=== PATIENT | female | born 1985 | race Caucasian/White ===

== ENCOUNTER 2017-08-10 21:13 | Emergency (ER) | payer MEDICAID ==
[2017-08-10 22:19] LABS: BASOPHILS 0.4 % (0-2); EOSINOPHILS 2.7 % (0-7); HEMATOCRIT 39.1 % (36.0-48.0); HEMOGLOBIN 13.6 g/dL (12-16); IMMATURE GRANULOCYTES 0.2 % (0-5); LYMPHOCYTES 39.7 % (15-50); MCH 30.6 pg (26.0-34.0); MCHC 34.8 g/dL (31.0-37.0); MCV 88.1 fL (80.0-100.0); MEAN PLATELET VOLUME 10.4 fL (7.4-10.4); PLATELET COUNT 196 10x3/uL (130-400); RBC 4.44 10x6/uL (4.00-5.40); RDW 11.9 % (11.5-14.5); WBC 9.5 10x3/uL (4.8-10.8)
[2017-08-10 22:32] LABS: ALKALINE PHOSPHATASE 95 U/L (46-116); ALT (SGPT) 19 U/L (10-68); BILIRUBIN - TOTAL 0.53 mg/dL (0.2-1.3); CALC OSMOLALITY 278 mosm/kg (275-300); CALCIUM 8.9 mg/dL (8.5-10.1); CARBON DIOXIDE 28.9 mmol/L (21.0-32.0); CHLORIDE - SERUM 103 mmol/L (98-107); CREATININE - SERUM 0.7 mg/dL (0.6-1.3); POTASSIUM - SERUM 3.3 mmol/L (3.5-5.1); PROTEIN - SERUM 7.5 g/dL (6.4-8.2); SODIUM 141 mmol/L (136-145); UREA NITROGEN 13 mg/dL (7-18); eGFR NON AFRICAN AMERICAN > 90 mL/min (90-120)
[2017-08-10 22:41] LABS: GLUCOSE 70 mg/dL (74-106)
[2017-08-10 22:44] LABS: CKMB 0.9 U/L (0.0-3.6); CREATINE KINASE 73 UL (21-215)
[2017-08-10 22:45] LABS: TROPONIN-I < 0.017 ng/mL (0.000-0.060)
== END 2017-08-10 22:59 | disposition home or self-care (01) ==
LOC: D.ER 21:13
PROVIDERS: Nurse Practitioner Family
DX: F41.9 Anxiety disorder, unspecified (principal); G44.209 Tension-type headache, unspecified, not intractable; M62.838 Other muscle spasm; E10.9 Type 1 diabetes mellitus without complications; Z79.4 Long term (current) use of insulin; Z96.41 Presence of insulin pump (external) (internal); I45.10 Unspecified right bundle-branch block